=== PATIENT | female | born 1955 | race African-American/Black ===

== ENCOUNTER 2018-09-10 06:18 | Emergency (ER) | payer MEDICAID, OTHER ==
[~2018-09-10] VITALS: Ht 162.6 cm; Wt 83.0 kg
[~2018-09-10 06:18] MED LIST: AMLO1CAP6 PO; ATOR20TA65 PO; BIOT300T3 PO; CLON0.2T PO; HALO2TAB PO; HYDR-3281 PO; LEVO75TA7 PO; METF-416 PO; OMEG1CAP50 PO; QUET400T PO; QUET50TA PO; SITA100T11 PO; ZET10 PO
[2018-09-10] MEDS ORDERED: ACETAMINOPHEN 325MG TABLET PO ONE (10:00)
[2018-09-10 11:28] VITALS: BP 155/87
== END 2018-09-10 11:28 | disposition home or self-care (01) ==
LOC: ER 06:18
DX: S62.614A Displaced fracture of proximal phalanx of right ring finger, initial encounter for closed fracture (principal); W18.39XA Other fall on same level, initial encounter; Y93.89 Activity, other specified; Y92.89 Other specified places as the place of occurrence of the external cause
CPT/HCPCS: 29130; 73130; 99283

== ENCOUNTER 2023-01-30 12:48 | Emergency (ER) | payer MEDICAID ==
[~2023-01-30] VITALS: Ht 162.6 cm; Wt 61.0 kg
[~2023-01-30 12:48] MED LIST changes: -BIOT300T3 PO; +BIOT300T7 PO; +EZET10TA13 PO; -HYDR-3281 PO; +HYDR-4346 PO; -ZET10 PO
[2023-01-30 12:56] VITALS: BP 145/88; PULSE 115; RESP 20; O2SAT 98
[2023-01-30 14:30] VITALS: TEMP 98.3
[2023-01-30] MEDS ORDERED: ACETAMINOPHEN 325MG TABLET PO ONE (14:30)
[2023-01-30] MEDS ORDERED: ACET-2708 MT (15:47)
== END 2023-01-30 16:04 | disposition home or self-care (01) ==
LOC: ER 12:48
DX: S09.90XA Unspecified injury of head, initial encounter (principal); E11.9 Type 2 diabetes mellitus without complications; I10 Essential (primary) hypertension; Z79.899 Other long term (current) drug therapy; X58.XXXA Exposure to other specified factors, initial encounter; Y93.89 Activity, other specified; Y92.89 Other specified places as the place of occurrence of the external cause; Y99.8 Other external cause status
CPT/HCPCS: 99284